=== PATIENT | female | born 1990 | race Caucasian/White ===

== ENCOUNTER 2018-02-05 22:19 | Emergency (ER) | payer OTHER ==
[~2018-02-05] VITALS: Ht 152.4 cm; Wt 85.4 kg
[2018-02-05 22:25] VITALS: BP 118/84
--- NOTE | 2018-02-05 23:05 | NUR ---
PT AMBULATED TO ER BED 05
--- NOTE | 2018-02-05 23:13 | NUR ---
ER AT BEDSIDE FOR EVAL
--- NOTE | 2018-02-05 23:16 | NUR ---
PT BIB SIDE C/O MULTIPLE EPISODES OF N/V/D X 1 DAY. REPORTS CHILLS AND 10/10 HEADACHE. DENIES ABD PAIN WITH LIGHT SENSITIVITY, DENIES ANY TRAUMA. PMH/RX/TOOK IBUPROFEN AT 1999 WITHOUT RELIEF. PT SKIN IS INTACT, PINK/WARM/DRY; AAOX4, PERRL, WITH EVEN AND STEADY GAIT; LUNGS CLEAR BL, BREATHING UNLABORED; HR EVEN AND REGULAR, BL PERIPHERAL PULSES PRESENT; BS ACTIVE X4, NO TENDERNESS TO PALPATION. PT DENIES ANY FEVER, CP, SOB, OR COUGH AT THIS TIME; PT STATES 7/10 PAIN AT THIS TIME; VSS; PATIENT POSITIONED FOR COMFORT; HOB ELEVATED; BEDRAILS UP X2; BED DOWN.
[2018-02-06] MEDS ORDERED: KETOROLAC 30 MG/ML VIAL IVP STA (00:13)
[2018-02-06] MEDS ORDERED: METOCLOPRAMIDE 10 MG/2 ML INJ VIAL IVP ONE (00:15)
[2018-02-06] MEDS ORDERED: NACL 0.9% 1,000 ML IV ONE (00:15)
[2018-02-06] MEDS ORDERED: diphenhydrAMINE 50 MG/ML VIAL IVP ONE (00:15)
--- NOTE | 2018-02-06 00:35 | NUR ---
PT SENT TO CT WITH TECH VIA W/C AAOX4
--- NOTE | 2018-02-06 01:30 | NUR ---
WAITING FOR ER MD DR NAZARIO DISCHARGE INSTRUCTIONS AND ANY PRESCRIPTIONS.
[2018-02-06 01:40] VITALS: BP 122/76
--- NOTE | 2018-02-06 01:40 | NUR ---
Patient discharged with v/s stable. Written and verbal after care instructions given and explained. Patient alert, oriented and verbalized understanding of instructions. Ambulatory with steady gait. All questions addressed prior to discharge. ID band removed. Patient advised to follow up with PMD. Rx of REGLAN AND IBUPROFEN given. Patient educated on indication of medication including possible reaction and side effects. Opportunity to ask questions provided and answered.
== END 2018-02-06 01:40 | disposition home or self-care (01) ==
LOC: MED 22:19
DX: G43.909 Migraine, unspecified, not intractable, without status migrainosus (principal)
CPT/HCPCS: 70450; 70486; 81002; 81025; 96361; 96374; 96375; 99284; J1200; J1885; J2765; J7030